=== PATIENT | male | born 1960 | race Caucasian/White ===

== ENCOUNTER 2019-05-09 10:57 | Emergency (ER) | payer MEDICAID ==
[~2019-05-09] VITALS: Ht 190.5 cm; Wt 97.5 kg
[~2019-05-09 10:57] MED LIST: ATEN50TA80
[2019-05-09 11:54] VITALS: BP 197/104
== END 2019-05-09 12:59 | disposition home or self-care (01) ==
LOC: ER 10:57
DX: N20.0 Calculus of kidney (principal); K21.9 Gastro-esophageal reflux disease without esophagitis; I10 Essential (primary) hypertension; F17.210 Nicotine dependence, cigarettes, uncomplicated
CPT/HCPCS: 74176